=== PATIENT | male | born 1950 | race African-American/Black ===

== ENCOUNTER 2022-10-29 11:56 | Emergency (ER) | payer BC, MEDICAID, MEDICARE ==
[~2022-10-29] VITALS: Ht 180.3 cm; Wt 109.0 kg
[~2022-10-29 11:56] MED LIST: BENA40TA91 MT; DILT60TA35 PO; DOXA1TAB PO; GLIP10TA10 MT; HYDR-4133 MT; METF-416 MT
[2022-10-29 12:17] VITALS: BP 138/81
[2022-10-29 13:55] LABS: BASOPHILS % 1.2 % (0.0-2.0); EOSINOPHILS % 2.1 % (0.0-5.0); HEMATOCRIT. 34.3 % (42.0-52.0); HEMOGLOBIN. 11.3 g/dL (14.0-18.0); LYMPHOCYTES % 17.1 % (20.0-50.0); MEAN CORPUSCULAR HEMOGLOBIN 27.9 pg (28.0-32.0); MEAN CORPUSCULAR VOLUME 84.9 fL (80.0-94.0); MEAN PLATELET VOLUME 7.2 fl (7.4-10.4); MONOCYTES % 11.2 % (2.0-8.0); NEUTROPHILS % 68.4 % (40.0-76.0); PLATELET 298 x1000/uL (130-400); RED BLOOD CELL COUNT 4.04 mill/uL (4.7-6.1); RED CELL DISTRIBUTION WIDTH 14.1 % (11.6-14.6)
[2022-10-29 14:08] LABS: CHLORIDE 111 mEq/L (98-107)
== END 2022-10-29 15:19 | disposition home or self-care (01) ==
LOC: ER 11:56
DX: R04.0 Epistaxis (principal); E11.65 Type 2 diabetes mellitus with hyperglycemia; I10 Essential (primary) hypertension; Z98.890 Other specified postprocedural states; Z88.0 Allergy status to penicillin
CPT/HCPCS: 36415; 80053; 85025; 99283